=== PATIENT | female | born 1975 | race Caucasian/White ===

== ENCOUNTER 2020-10-06 08:08 | Emergency (ER) | payer OTHER, SELFPAY ==
[~2020-10-06] VITALS: Ht 165.1 cm; Wt 63.5 kg
[2020-10-06 08:09] VITALS: Ht 165.1 cm; Wt 63.5 kg
[2020-10-06 09:43] VITALS: BP 142/90
== END 2020-10-06 09:43 | disposition home or self-care (01) ==
LOC: ED 08:08
DX: B34.9 Viral infection, unspecified (principal); Z20.828 Contact with and (suspected) exposure to other viral communicable diseases
CPT/HCPCS: U0003